=== PATIENT | male | born 1940 | race Two or more races ===

== ENCOUNTER 2024-07-22 22:17 | Emergency (ER) | payer OTHER ==
[2024-07-22 22:26] VITALS: BP 148/76; PULSE 66; RESP 16; TEMP 98.4; BMI 31.1
[2024-07-22] MEDS ORDERED: ACETAMINOPHEN 325 MG TABLET (FP) ONE (23:35)
[2024-07-22] MEDS: ACETAMINOPHEN 500 MG TABLET (FP) PO ONE (23:39)
[2024-07-22] MEDS: ACETAMINOPHEN 325 MG TABLET (FP) PO ONE (23:47)
== END 2024-07-23 01:10 | disposition home or self-care (01) ==
LOC: JER 22:17
DX: L89.152 Pressure ulcer of sacral region, stage 2 (principal)
CPT/HCPCS: 99283-25